=== PATIENT | male | born 1955 | race Caucasian/White ===

== ENCOUNTER 2018-05-23 06:22 | Day surgery (SDC) | payer OTHER ==
[2018-05-23 06:37] VITALS: BMI 25.7
--- NOTE | 2018-05-23 06:47 | PDOC ---
History of Present Illness - General Chief Complaint: Eye Problem Stated Complaint: RT EYE PROBLEM Time Seen by Provider: 05/23/18 06:36 - History of Present Illness Initial Comments: 05/23/18 06:40 This 62-year-old patient with a few month history of right corneal injury and subsequent procedures presents to the emergency room to meet for evaluation and treatment. Patient states that he presented to months ago with pain in the right eye. Corneal ulcer/abrasion was diagnosed. He subsequently has undergone 2 ophthalmologic procedures, the most recent on 05/19. He now presents for further procedure: described as "partially sewing together upper and lower eyelid together". Patient has a history of glaucoma but no other significant medical problems. Medications Glaucoma drops as noted below No known ALLERGIES Past History - Past Medical History Allergies/Adverse Reactions: Allergies Allergy/AdvReac Type Severity Reaction Status Date / Time No Known Allergies Allergy Verified 08/14/14 11:24 Home Medications: Ambulatory Orders Brimonidine Tartrate/Timolol [Combigan Eye Drops] 5 ml OP BID 05/23/18 Testosterone [Androgel] 2.5 gm TD DAILY 05/23/18 COPD: No Other medical history: GLAUCOMA - Suicide/Smoking/Psychosocial Hx Smoking History: Never smoked Number of Cigarettes Smoked Daily: 0 Hx Alcohol Use: No Review of Systems - Review of Systems Able to Perform ROS?: Yes Comments:: 12 point review of systems is negative except for what is noted in the history of present illness *Physical Exam - Vital Signs Last Vital Signs Temp Pulse Resp BP Pulse Ox 98.2 F 80 16 143/81 96 05/23/18 06:35 05/23/18 06:35 05/23/18 06:35 05/23/18 06:35 05/23/18 06:35 - Physical Exam Comments: GENERAL: HEAD: Normal with no signs of trauma. EYES: Right eye-moderately erythematous/edematous upper eyelid with suture present wound eyelash margin Markedly injected conjunctiva Left eye-eyelids/conjunctiva/pupil/anterior chamber without evidence of acute abnormality Medical Decision Making - Medical Decision Making 05/23/18 06:47 This 62-year-old man with a few month history of poorly healing right corneal ulcer/abrasion presents for evaluation by vascular ultrasound technologist,Dr Walker, and likely procedure to follow. Of note, patient has had 2 previous ophthalmologic procedures during the last 2 months, most recent one 4 days ago. He reports no previous history of significant medical issues. He uses prescribed eyedrops for his glaucoma; no other medications taken. Case signed out to Dr Pacheco at change of shift *DC/Admit/Observation/Transfer Diagnosis at time of Disposition: History of corneal transplant - Discharge Dispostion Disposition: HOME Condition at time of disposition: Stable - Referrals - Patient Instructions - Post Discharge Activity
--- NOTE | 2018-05-23 07:44 | PDOC ---
*Physical Exam - Vital Signs Last Vital Signs Temp Pulse Resp BP Pulse Ox 98.2 F 80 16 143/81 96 05/23/18 06:35 05/23/18 06:35 05/23/18 06:35 05/23/18 06:35 05/23/18 06:35 Medical Decision Making - Medical Decision Making 05/23/18 07:[address] Walker in the ED. Pt is s/p corneal transplant (second) 4 days ago, temporary suture sealing the eyelids broke, now needs emergent replacement. Has large corneal abasion/ulceration on new transplant. Admit to OR under Dr. Walker. *DC/Admit/Observation/Transfer Diagnosis at time of Disposition: History of corneal transplant - Discharge Dispostion Condition at time of disposition: Stable Decision to Admit order: Yes - Referrals Referrals: Nicholas Oshea [Primary Care Provider] - - Patient Instructions - Post Discharge Activity
[2018-05-23] MEDS ORDERED: ERYTHROMYCIN 0.5% OPHTHALMIC OINTMENT 3.5 GM TUBE ONE (09:54)
[2018-05-23] MEDS ORDERED: POVIDONE-IODINE 5% OPHTHALMIC PREP 30 ML SOLUTION ONE (09:54)
[2018-05-23] MEDS ORDERED: TETRACAINE 0.5% OPHTH SOLN 2 ML BOTTLE ONE (09:54)
[2018-05-23] MEDS ORDERED: BUPIVACAINE HCL/PF 0.5% (5MG/ML) 10 ML VIAL ONE (09:54)
[2018-05-23] MEDS ORDERED: LIDOCAINE 1%/EPI 1:100000 (20 ML MULTI DOSE VIAL) ONE (09:55)
[2018-05-23] MEDS ORDERED: DEXMEDETOMIDINE HCL 200 MCG/2 ML ML IVPB ONE (10:18)
[2018-05-23] MEDS ORDERED: PROPOFOL 20 ML ONE (10:21)
[2018-05-23] MEDS ORDERED: MIDAZOLAM HCL 2 MG/2 ML SINGLE DOSE VIAL ONE (10:21)
[2018-05-23] MEDS ORDERED: ONDANSETRON 4 MG/2 ML VIAL ONE (10:43)
[2018-05-23] MEDS ORDERED: ceFAZolin SODIUM 1 GM VIAL ONE (10:43)
[2018-05-23] MEDS ORDERED: DEXAMETHASONE SOD PHOSPHATE 4 MG/1 ML VIAL ONE (10:43)
[2018-05-23] MEDS ORDERED: ONDANSETRON 4 MG/2 ML VIAL IVPUSH PRN (11:38)
[2018-05-23] MEDS ORDERED: PROMETHAZINE HCL 25 MG/1 ML VIAL IVPUSH PRN (11:38)
[2018-05-23] MEDS ORDERED: oxyCODONE HCL 5 MG TABLET PO PRN ×2 (11:38)
[2018-05-23 13:20] VITALS: TEMP 97.7
[2018-05-23 13:22] VITALS: BP 121/64; PULSE 61
--- NOTE | 2018-05-23 13:55 | OP ---
DATE OF OPERATION: 05/23/2018 PREOPERATIVE DIAGNOSIS: Status post keratoplasty with new ocular surface breakdown and abrasion right cornea graft. POSTOPERATIVE DIAGNOSIS: Status post keratoplasty with new ocular surface breakdown and abrasion right cornea graft with temporary tarsorrhaphy in place. PROCEDURE: 1. Removal of temporary tarsorrhaphy. 2. Lateral canthoplasty/tarsorrhaphy, right. SURGEON: Dylon Burton MD ANESTHESIA: Local with sedation. COMPLICATIONS: None. ESTIMATED BLOOD LOSS: 2 mL DESCRIPTION OF PROCEDURE: The patient was brought to the operating room and placed on the operating room table. Vital signs were monitored by Anesthesia. Tetracaine was placed in both eyes. Time-out was performed. The extent of the proposed tarsorrhaphy was marked with a sterile marking pen to the lateral limbus. Time-out was performed. The patient was given intravenous sedation, and a 50/50 mixture of 2% Xylocaine, 1:100,000 epinephrine, 0.5% Marcaine was injected subcutaneously in the lateral half of the upper and lower lids. The patient was prepped and draped in the usual sterile fashion exposing the right eye, and the eyelashes were cleaned of all crust with Betadine following which an incision was made in the greater line of the upper and lower lid from the lateral limbus to the lateral canthus keeping all of the lash roots in the anterior lamella. The posterior lamella of the epithelium margin was removed and then the posterior lamella was anastomosed with 3 interrupted 7-0 Vicryl sutures being sure to take partial-thickness dorsal bites and no penetration of the posterior lamella. It was anastomosed at the posterior lamella of the eyelids creating a new lateral canthus. The anterolateral was closed with interrupted 5-0 chromic sutures with the skin and groove of the upper and lower lid and then a double-arm 4-0 silk passer No. 8-Danish bolster was passed through the skin and great line of the lower lid coming out the groove into the groove and out the skin of the upper lid through a 2nd bolster, and this was tied as a tarsorrhaphy suture reinforcing the previously created anastomosis between the tarsal plates and the skin. Erythromycin ointment was placed on the sutures and then in the eye, and the patient was taken to the recovery room in stable condition. DYLON BURTON M.D. MICHAEL/[id number]
== END 2018-05-23 13:50 | disposition home or self-care (01) ==
LOC: FER 06:22 → FASUSAT 07:49
PROVIDERS: ATTEND Ophthalmology
PROC: 08SN0ZZ Reposition Right Upper Eyelid, Open Approach (ICD-10-PCS; 2018-05-23)
PROC: 08QQXZZ Repair Right Lower Eyelid, External Approach (ICD-10-PCS; 2018-05-23)
PROC: 08QNXZZ Repair Right Upper Eyelid, External Approach (ICD-10-PCS; 2018-05-23)
PROC: 08SQ0ZZ Reposition Right Lower Eyelid, Open Approach (ICD-10-PCS; principal; 2018-05-23 11:00)
DX: H18.891 Other specified disorders of cornea, right eye (principal); Z94.7 Corneal transplant status; Z98.890 Other specified postprocedural states; S05.01XA Injury of conjunctiva and corneal abrasion without foreign body, right eye, initial encounter; X58.XXXA Exposure to other specified factors, initial encounter; Y93.89 Activity, other specified; Y92.89 Other specified places as the place of occurrence of the external cause
CPT/HCPCS: 94760; 99282-25